=== PATIENT | female | born 2000 | race Caucasian/White ===

== ENCOUNTER 2022-09-30 18:10 | Inpatient (IN) | payer BC ==
[2022-09-30] MEDS ORDERED: SODIUM CHLORIDE 0.9% 1,000 ML IV STA (18:51)
[2022-09-30 19:17] LABS: Basophils # (A) 0.1 k/uL (0-0.2); Basophils % (A) 0 %; Eosinophils # (A) 0.1 k/uL (0-0.7); Eosinophils % (A) 1 %; HCT 44.5 % (34.0-46.0); HGB 14.7 gm/dL (11.4-16.0); Lymphocytes # (A) 2.1 k/uL (1.0-4.8); Lymphocytes % (A) 20 %; MCH 29.6 pg (25.0-35.0); MCV 89.9 fL (80.0-100.0); Mean Platelet Volume 7.4; Monocytes # (A) 0.4 k/uL (0-1.0); Monocytes % (A) 4 %; Neutrophils # (A) 7.7 k/uL (1.3-7.7); Neutrophils % (A) 73 %; Platelet Count 365 k/uL (150-450); RBC 4.95 m/uL (3.80-5.40); RDW 12.9 % (11.5-15.5); WBC 10.5 k/uL (3.8-10.6)
[2022-09-30 19:19] LABS: Appearance,Urine Clear (Clear); Bacteria,Urine Rare /hpf; Bilirubin,Urine Negative (Negative); Blood,Urine Trace (Negative); Color,Urine Light Yellow; Glucose,Urine (UA) Negative (Negative); Ketones,Urine Negative (Negative); Leukocyte Esterase,Urine Small (Negative); Nitrite,Urine Negative (Negative); PH, Urine 5.5 (5.0-8.0); Protein,Urine Negative (Negative); RBC,Urine 1 /hpf (0-5); Specific Gravity,Urine 1.006 (1.001-1.035); Squamous Epithelial Cell,Urine 2 /hpf (0-4); Urobilinogen,Urine <2.0 mg/dL (<2.0); WBC,Urine 2 /hpf (0-5)
[2022-09-30 19:27] LABS: ALT 42 U/L (4-34); AST 30 U/L (14-36); Acetaminophen <10.0 ug/mL; African American GFR (CKD) >90 (>60 ml/min/1.73 sqM); Albumin 4.8 g/dL (3.5-5.0); Alcohol <10 mg/dL; Alkaline Phosphatase 61 U/L (38-126); Anion Gap 12 mmol/L; Blood Urea Nitrogen 9 mg/dL (7-17); Calcium 9.5 mg/dL (8.4-10.2); Carbon Dioxide 23 mmol/L (22-30); Chloride 104 mmol/L (98-107); Glucose 125 mg/dL (74-99); Non-African American GFR(CKD) >90 (>60 ml/min/1.73 sqM); Potassium 3.8 mmol/L (3.5-5.1); Salicylate <1.0 mg/dL; Sodium 139 mmol/L (137-145); Total Bilirubin 0.4 mg/dL (0.2-1.3)
[2022-09-30 19:47] LABS: Amphetamine Screen,Urine Not Detected (NotDetected); Barbiturate Screen,Urine Not Detected (NotDetected); Benzodiazepines Screen,Urine Not Detected (NotDetected); Cocaine Screen,Urine Not Detected (NotDetected); Methadone Screen, Urine Not Detected (NotDetected); Opiate Screen,Urine Not Detected (NotDetected); Oxycodone Screen, Urine Not Detected (NotDetected); Phencyclidine Screen,Urine Not Detected (NotDetected); Tricyclic Antidepressant,Urine Not Detected (NotDetected); Urn Cannabinoid Scrn Not Detected (NotDetected)
--- NOTE | 2022-09-30 19:49 | ED ---
Overdose HPI - General Chief Complaint: Overdose Stated Complaint: overdose Time Seen by Provider: 09/30/22 18:20 Source: patient Mode of arrival: ambulatory Limitations: no limitations - History of Present Illness Initial Comments: 22-year-old female presents the emergency department for overdose. Mother at bedside provides majority of the history. Patient has a history of depression however does not see a counselor as she refuses to see one. She presents today as she was feeling depressed. She contacted her mom and told her last night that she was going to attempt suicide and took several tablets of Benadryl, Tylenol, mirtazapine and sumatriptan. She is unsure of how many she took. Ingestion was at 11:30 last night. Mother had difficulty getting the patient to come into the ER. Patient states that she intentionally took these medications to harm herself. She has one previous episode of attempt previously. Denies hospitalization. No drug or alcohol use. No concern for . No other alleviating, precipitating or modifying factors - Related Data Home Medications Medication Instructions Recorded Confirmed No Known Home Medications 09/30/22 10/01/22 Allergies Allergy/AdvReac Type Severity Reaction Status Date / Time No Known Allergies Allergy Verified 10/01/22 00:11 Review of Systems ROS Statement: Those systems with pertinent positive or pertinent negative responses have been documented in the HPI. ROS Other: All systems not noted in ROS Statement are negative. Past Medical History Additional Past Medical History / Comment(s): itchy skin, History of Any Multi-Drug Resistant Organisms: None Reported Past Surgical History: No Surgical Hx Reported Past Psychological History: Depression Smoking Status: Never smoker Past Alcohol Use History: None Reported Past Drug Use History: None Reported General Exam Limitations: no limitations General appearance: alert, in no apparent distress Head exam: Present: atraumatic, normocephalic, normal inspection Eye exam: Present: normal appearance, PERRL, EOMI. Absent: scleral icterus, conjunctival injection, periorbital swelling ENT exam: Present: normal exam, mucous membranes moist Neck exam: Present: normal inspection. Absent: tenderness, meningismus, lymphadenopathy Respiratory exam: Present: normal lung sounds bilaterally. Absent: respiratory distress, wheezes, rales, rhonchi, stridor Cardiovascular Exam: Present: regular rate, normal rhythm, normal heart sounds. Absent: systolic murmur, diastolic murmur, rubs, gallop, clicks GI/Abdominal exam: Present: soft, normal bowel sounds. Absent: distended, tenderness, guarding, rebound, rigid Extremities exam: Present: normal inspection, full ROM, normal capillary refill. Absent: tenderness, pedal edema, joint swelling, calf tenderness Back exam: Present: normal inspection Neurological exam: Present: alert, oriented X3, CN II-XII intact Psychiatric exam: Present: depressed, suicidal ideation Skin exam: Present: warm, dry, intact, normal color. Absent: rash Course Vital Signs 09/30/22 09/30/22 18:15 20:04 Temperature 98.7 F Pulse Rate 116 H 100 Respiratory 18 16 Rate Blood Pressure 119/86 126/75 O2 Sat by Pulse 99 99 Oximetry Medical Decision Making - Medical Decision Making Was pt. sent in by a medical professional or institution (, PA, MARKETING ADMINISTRATOR, urgent care, hospital, or senior living...) When possible be specific @ -No Did you speak to anyone other than the patient for history (EMS, parent, family, police, friend...)? What history was obtained from this source @ -I spoke with the patient's mother for history Did you review nursing and triage notes (agree or disagree)? Why? @ -I reviewed and agree with nursing and triage notes Were old charts reviewed (outside hosp., previous admission, EMS record, old EKG, old radiological studies, urgent care reports/EKG's, senior living records)? Report findings @ -No old charts were reviewed Differential Diagnosis (chest pain, altered mental status, abdominal pain women, abdominal pain men, vaginal bleeding, weakness, fever, dyspnea, syncope, headache, dizziness, GI bleed, back pain, seizure, CVA, palpatations, mental health, musculoskeletal)? @ -Differential Mental Health Depression, anxiety, bipolar, psychosis, schizophrenia, borderline personality, situational depression, adjustment disorder, behavioral disorder, brain tumor, malingering, substance abuse, encephalopathy, medication reaction, dementia, hypothyroidism, degenerative neurologic disorder, lupus.... This is not meant to be all-inclusive list EKG interpreted by me (3pts min.). @ -EKG demonstrates a sinus tachycardia with a rate of 110. WI interval 144. QRS 81. QTC of 390. No acute ST segment elevations or depressions X-rays interpreted by me (1pt min.). @ -None done CT interpreted by me (1pt min.). @ -None done U/S interpreted by me (1pt. min.). @ -None done What testing was considered but not performed or refused? (CT, X-rays, U/S, labs)? Why? @ -None What meds were considered but not given or refused? Why? @ -None Did you discuss the management of the patient with other professionals (professionals i.e. , PA, MARKETING ADMINISTRATOR, lab, RT, psych nurse, social worker masters, reroller hand, teacher, amphibious operations officer, case finishing machine adjuster)? Give summary @ -I spoke with poison control in regards to the patient's overdose Was smoking cessation discussed for >3mins.? @ -No Was critical care preformed (if so, how long)? @ -No Were there social determinants of health that impacted care today? How? (Homelessness, low income, unemployed, alcoholism, drug addiction, transportation, low edu. Level, literacy, decrease access to med. care, senior care, rehab)? @ -No Was there de-escalation of care discussed even if they declined (Discuss DNR or withdrawal of care, Hospice)? DNR status @ -No What co-morbidities impacted this encounter? (DM, HTN, Smoking, COPD, CAD, Cancer, CVA, ARF, Chemo, Hep., AIDS, mental health diagnosis, sleep apnea, morbid obesity)? @ -None Was patient admitted / discharged? Hospital course, mention meds given and route, prescriptions, significant lab abnormalities, going to OR and other pertinent info. @ -Upon arrival patient was placed in room 5. A thorough history and physical exam was performed. Ingestion was approximately 20 hours ago. She is placed on continuous pulse ox and cardiac monitoring. 12-lead EKG is obtained and laboratory studies are conducted. Poison control is consulted. Patient is medically clear at this time. She is evaluate her by EPS and requires admission. Patient awaiting a bed on the floor in stable condition Undiagnosed new problem with uncertain prognosis? @ -No Drug Therapy requiring intensive monitoring for toxicity (Heparin, Nitro, Insulin, Cardizem)? @ -No Were any procedures done? @ -No Diagnosis/symptom? @ -Acute intentional ingestion, acute depression, acute suicidal ideations Acute, or Chronic, or Acute on Chronic? @ -Acute Uncomplicated (without systemic symptoms) or Complicated (systemic symptoms)? @ -complicated Side effects of treatment? @ -No Exacerbation, Progression, or Severe Exacerbation? @ -No Poses a threat to life or bodily function? How? (Chest pain, [place], [place], pneumonia, PE, COPD, DKA, ARF, appy, cholecystitis, CVA, Diverticulitis, Homicidal, Suicidal, threat to staff... and all critical care pts) @ -Yes patient is actively suicidal - Lab Data Result diagrams: 09/30/22 19:02 09/30/22 19:02 Lab Results 09/30/22 09/30/22 09/30/22 Range/Units 19:02 19:02 19:02 WBC 10.5 (3.8-10.6) k/uL RBC 4.95 (3.80-5.40) m/uL Hgb 14.7 (11.4-16.0) gm/dL Hct 44.5 (34.0-46.0) % MCV 89.9 (80.0-100.0) fL MCH 29.6 (25.0-35.0) pg MCHC 33.0 (31.0-37.0) g/dL RDW 12.9 (11.5-15.5) % Plt Count 365 (150-450) k/uL MPV 7.4 Neutrophils % 73 % Lymphocytes % 20 % Monocytes % 4 % Eosinophils % 1 % Basophils % 0 % Neutrophils # 7.7 (1.3-7.7) k/uL Lymphocytes # 2.1 (1.0-4.8) k/uL Monocytes # 0.4 (0-1.0) k/uL Eosinophils # 0.1 (0-0.7) k/uL Basophils # 0.1 (0-0.2) k/uL Sodium (137-145) mmol/L Potassium (3.5-5.1) mmol/L Chloride (98-107) mmol/L Carbon Dioxide (22-30) mmol/L Anion Gap mmol/L BUN (7-17) mg/dL Creatinine (0.52-1.04) mg/dL Est GFR (CKD-EPI)AfAm (>60 ml/min/1.73 sqM) Est GFR (CKD-EPI)NonAf (>60 ml/min/1.73 sqM) Glucose (74-99) mg/dL Calcium (8.4-10.2) mg/dL Total Bilirubin (0.2-1.3) mg/dL AST (14-36) U/L ALT (4-34) U/L Alkaline Phosphatase (38-126) U/L Total Protein (6.3-8.2) g/dL Albumin (3.5-5.0) g/dL Urine Color Urine Appearance (Clear) Urine pH (5.0-8.0) Ur Specific [place] (1.001-1.035) Urine Protein (Negative) Urine Glucose (UA) (Negative) Urine Ketones (Negative) Urine Blood (Negative) Urine Nitrite (Negative) Urine Bilirubin (Negative) Urine Urobilinogen (<2.0) mg/dL Ur Leukocyte Esterase (Negative) Urine RBC (0-5) /hpf Urine WBC (0-5) /hpf Ur Squamous Epith Cells (0-4) /hpf Urine Bacteria (None) /hpf Urine HCG, Qual Not Detected (Not Detectd) Salicylates mg/dL Urine Opiates Screen Not Detected (NotDetected) Ur Oxycodone Screen Not Detected (NotDetected) Urine Methadone Screen Not Detected (NotDetected) Ur Propoxyphene Screen Not Detected (NotDetected) Acetaminophen ug/mL Ur Barbiturates Screen Not Detected (NotDetected) U Tricyclic Antidepress Not Detected (NotDetected) Ur Phencyclidine Scrn Not Detected (NotDetected) Ur Amphetamines Screen Not Detected (NotDetected) U Methamphetamines Scrn Not Detected (NotDetected) U Benzodiazepines Scrn Not Detected (NotDetected) Urine Cocaine Screen Not Detected (NotDetected) U Marijuana (THC) Screen Not Detected (NotDetected) Serum Alcohol mg/dL Coronavirus (PCR) (Not Detectd) 09/30/22 09/30/22 09/30/22 Range/Units 19:02 19:02 23:24 WBC (3.8-10.6) k/uL RBC (3.80-5.40) m/uL Hgb (11.4-16.0) gm/dL Hct (34.0-46.0) % MCV (80.0-100.0) fL MCH (25.0-35.0) pg MCHC (31.0-37.0) g/dL RDW (11.5-15.5) % Plt Count (150-450) k/uL MPV Neutrophils % % Lymphocytes % % Monocytes % % Eosinophils % % Basophils % % Neutrophils # (1.3-7.7) k/uL Lymphocytes # (1.0-4.8) k/uL Monocytes # (0-1.0) k/uL Eosinophils # (0-0.7) k/uL Basophils # (0-0.2) k/uL Sodium 139 (137-145) mmol/L Potassium 3.8 (3.5-5.1) mmol/L Chloride 104 (98-107) mmol/L Carbon Dioxide 23 (22-30) mmol/L Anion Gap 12 mmol/L BUN 9 (7-17) mg/dL Creatinine 0.63 (0.52-1.04) mg/dL Est GFR (CKD-EPI)AfAm >90 (>60 ml/min/1.73 sqM) Est GFR (CKD-EPI)NonAf >90 (>60 ml/min/1.73 sqM) Glucose 125 H (74-99) mg/dL Calcium 9.5 (8.4-10.2) mg/dL Total Bilirubin 0.4 (0.2-1.3) mg/dL AST 30 (14-36) U/L ALT 42 H (4-34) U/L Alkaline Phosphatase 61 (38-126) U/L Total Protein 8.0 (6.3-8.2) g/dL Albumin 4.8 (3.5-5.0) g/dL Urine Color Light Yellow Urine Appearance Clear (Clear) Urine pH 5.5 (5.0-8.0) Ur Specific [place] 1.006 (1.001-1.035) Urine Protein Negative (Negative) Urine Glucose (UA) Negative (Negative) Urine Ketones Negative (Negative) Urine Blood Trace H (Negative) Urine Nitrite Negative (Negative) Urine Bilirubin Negative (Negative) Urine Urobilinogen <2.0 (<2.0) mg/dL Ur Leukocyte Esterase Small H (Negative) Urine RBC 1 (0-5) /hpf Urine WBC 2 (0-5) /hpf Ur Squamous Epith Cells 2 (0-4) /hpf Urine Bacteria Rare H (None) /hpf Urine HCG, Qual (Not Detectd) Salicylates <1.0 mg/dL Urine Opiates Screen (NotDetected) Ur Oxycodone Screen (NotDetected) Urine Methadone Screen (NotDetected) Ur Propoxyphene Screen (NotDetected) Acetaminophen <10.0 ug/mL Ur Barbiturates Screen (NotDetected) U Tricyclic Antidepress (NotDetected) Ur Phencyclidine Scrn (NotDetected) Ur Amphetamines Screen (NotDetected) U Methamphetamines Scrn (NotDetected) U Benzodiazepines Scrn (NotDetected) Urine Cocaine Screen (NotDetected) U Marijuana (THC) Screen (NotDetected) Serum Alcohol <10 mg/dL Coronavirus (PCR) Not Detected (Not Detectd) Disposition Clinical Impression: Suicidal ideations, Depression Disposition: TRANSFER TO PSYCH HOSP/UNIT Condition: Serious Is patient prescribed a controlled substance at d/c from ED?: No
[2022-09-30] MEDS ORDERED: LORazepam 2 MG/ML INJ IM PRN (23:18)
[2022-09-30] MEDS ORDERED: HALOPERIDOL LACTATE 5 MG/ML 1 ML VIAL IM PRN (23:18)
[2022-09-30] MEDS ORDERED: ACETAMINOPHEN TAB 325 MG TAB PO PRN (23:18)
[2022-09-30] MEDS ORDERED: haloperidoL 5 MG TAB PO PRN (23:18)
[2022-09-30] MEDS ORDERED: MAGNESIUM HYDROXIDE 2,400 MG/10 ML CUP PO PRN (23:18)
[2022-09-30] MEDS ORDERED: MAG HYDROX/AL HYDROX/SIMETH 30 ML CUP PO PRN (23:18)
[2022-09-30] MEDS ORDERED: IBUPROFEN 600 MG TAB PO PRN (23:18)
[2022-09-30] MEDS ORDERED: traZODone HCL 50 MG TAB PO PRN (23:18)
[2022-10-01 02:20] LABS: Amorphous Sediment,Urine Rare /hpf; Appearance,Urine Cloudy (Clear); Bilirubin,Urine Negative (Negative); Blood,Urine Small (Negative); Color,Urine Yellow; Glucose,Urine (UA) Negative (Negative); Hyaline Casts,Urine 1 /lpf (0-2); Ketones,Urine Negative (Negative); Leukocyte Esterase,Urine Large (Negative); Mucus,Urine Moderate /hpf; Nitrite,Urine Negative (Negative); PH, Urine 5.5 (5.0-8.0); Protein,Urine Trace (Negative); RBC,Urine 2 /hpf (0-5); Specific Gravity,Urine 1.028 (1.001-1.035); Squamous Epithelial Cell,Urine 5 /hpf (0-4); Urobilinogen,Urine <2.0 mg/dL (<2.0); WBC,Urine 68 /hpf (0-5)
[2022-10-01] MEDS: NICOTINE 14MG/24HR PATCH TRANSDERM SCH (09:06)
[2022-10-01] MEDS ORDERED: FLUoxetine HCL 20 MG CAP PO STA (10:15)
[2022-10-01 12:43] LABS: Basophils % (A) 0 %; Eosinophils # (A) 0.1 k/uL (0-0.7); Eosinophils % (A) 2 %; HCT 42.6 % (34.0-46.0); HGB 13.8 gm/dL (11.4-16.0); Lymphocytes # (A) 2.1 k/uL (1.0-4.8); Lymphocytes % (A) 29 %; MCH 29.8 pg (25.0-35.0); MCHC 32.5 g/dL (31.0-37.0); MCV 91.6 fL (80.0-100.0); Mean Platelet Volume 7.6; Monocytes # (A) 0.3 k/uL (0-1.0); Monocytes % (A) 4 %; Neutrophils # (A) 4.7 k/uL (1.3-7.7); Neutrophils % (A) 64 %; Platelet Count 327 k/uL (150-450); RBC 4.65 m/uL (3.80-5.40); RDW 13.1 % (11.5-15.5); WBC 7.4 k/uL (3.8-10.6)
[2022-10-01 12:54] LABS: ALT 48 U/L (4-34); AST 39 U/L (14-36); African American GFR (CKD) >90 (>60 ml/min/1.73 sqM); Albumin 4.6 g/dL (3.5-5.0); Alkaline Phosphatase 56 U/L (38-126); Anion Gap 11 mmol/L; Blood Urea Nitrogen 11 mg/dL (7-17); Calcium 9.4 mg/dL (8.4-10.2); Carbon Dioxide 29 mmol/L (22-30); Chloride 102 mmol/L (98-107); Glucose 87 mg/dL (74-99); Non-African American GFR(CKD) >90 (>60 ml/min/1.73 sqM); Potassium 4.1 mmol/L (3.5-5.1); Sodium 142 mmol/L (137-145); Total Bilirubin 0.5 mg/dL (0.2-1.3); Total Protein 7.5 g/dL (6.3-8.2)
--- NOTE | 2022-10-01 13:29 | P.HP ---
Psychiatric H&P - . H&P Date: 10/01/22 History & Physical: Allergies Allergy/AdvReac Type Severity Reaction Status Date / Time No Known Allergies Allergy Verified 10/01/22 00:11 Vital Signs Temp 97.2 F L 10/01/22 03:28 Pulse 71 10/01/22 03:28 Resp 15 10/01/22 03:28 BP 133/69 10/01/22 03:28 Pulse Ox 100 10/01/22 03:28 FiO2 Intake & Output 09/30/22 10/01/22 10/01/22 18:59 06:59 18:59 Weight 113.398 kg 111.839 kg Laboratory Last Values WBC 7.4 k/uL (3.8-10.6) 10/01/22 12:11 RBC 4.65 m/uL (3.80-5.40) 10/01/22 12:11 Hgb 13.8 gm/dL (11.4-16.0) 10/01/22 12:11 Hct 42.6 % (34.0-46.0) 10/01/22 12:11 MCV 91.6 fL (80.0-100.0) 10/01/22 12:11 MCH 29.8 pg (25.0-35.0) 10/01/22 12:11 MCHC 32.5 g/dL (31.0-37.0) 10/01/22 12:11 RDW 13.1 % (11.5-15.5) 10/01/22 12:11 Plt Count 327 k/uL (150-450) 10/01/22 12:11 MPV 7.6 10/01/22 12:11 Neutrophils % 64 % 10/01/22 12:11 Lymphocytes % 29 % 10/01/22 12:11 Monocytes % 4 % 10/01/22 12:11 Eosinophils % 2 % 10/01/22 12:11 Basophils % 0 % 10/01/22 12:11 Neutrophils # 4.7 k/uL (1.3-7.7) 10/01/22 12:11 Lymphocytes # 2.1 k/uL (1.0-4.8) 10/01/22 12:11 Monocytes # 0.3 k/uL (0-1.0) 10/01/22 12:11 Eosinophils # 0.1 k/uL (0-0.7) 10/01/22 12:11 Basophils # 0.0 k/uL (0-0.2) 10/01/22 12:11 Sodium 142 mmol/L (137-145) 10/01/22 12:11 Potassium 4.1 mmol/L (3.5-5.1) 10/01/22 12:11 Chloride 102 mmol/L (98-107) 10/01/22 12:11 Carbon Dioxide 29 mmol/L (22-30) 10/01/22 12:11 Anion Gap 11 mmol/L 10/01/22 12:11 BUN 11 mg/dL (7-17) 10/01/22 12:11 Creatinine 0.74 mg/dL (0.52-1.04) 10/01/22 12:11 Est GFR (CKD-EPI)AfAm >90 (>60 ml/min/1.73 sqM) 10/01/22 12:11 Est GFR (CKD-EPI)NonAf >90 (>60 ml/min/1.73 sqM) 10/01/22 12:11 Glucose 87 mg/dL (74-99) 10/01/22 12:11 Calcium 9.4 mg/dL (8.4-10.2) 10/01/22 12:11 Total Bilirubin 0.5 mg/dL (0.2-1.3) 10/01/22 12:11 AST 39 U/L (14-36) H 10/01/22 12:11 ALT 48 U/L (4-34) H 10/01/22 12:11 Alkaline Phosphatase 56 U/L (38-126) 10/01/22 12:11 Total Protein 7.5 g/dL (6.3-8.2) 10/01/22 12:11 Albumin 4.6 g/dL (3.5-5.0) 10/01/22 12:11 TSH 1.390 mIU/L (0.465-4.680) 10/01/22 12:11 Urine Color Yellow 10/01/22 01:27 Urine Appearance Cloudy (Clear) H 10/01/22 01:27 Urine pH 5.5 (5.0-8.0) 10/01/22 01:27 Ur Specific [place] 1.028 (1.001-1.035) 10/01/22 01:27 Urine Protein Trace (Negative) H 10/01/22 01:27 Urine Glucose (UA) Negative (Negative) 10/01/22 01:27 Urine Ketones Negative (Negative) 10/01/22 01:27 Urine Blood Small (Negative) H 10/01/22 01:27 Urine Nitrite Negative (Negative) 10/01/22 01:27 Urine Bilirubin Negative (Negative) 10/01/22 01:27 Urine Urobilinogen <2.0 mg/dL (<2.0) 10/01/22 01:27 Ur Leukocyte Esterase Large (Negative) H 10/01/22 01:27 Urine RBC 2 /hpf (0-5) 10/01/22 01:27 Urine WBC 68 /hpf (0-5) H 10/01/22 01:27 Ur Squamous Epith Cells 5 /hpf (0-4) H 10/01/22 01:27 Amorphous Sediment Rare /hpf (None) H 10/01/22 01:27 Urine Bacteria Rare /hpf (None) H 09/30/22 19:02 Hyaline Casts 1 /lpf (0-2) 10/01/22 01:27 Urine Mucus Moderate /hpf (None) H 10/01/22 01:27 Urine HCG, Qual Not Detected (Not Detectd) 10/01/22 01:27 Salicylates <1.0 mg/dL 09/30/22 19:02 Urine Opiates Screen Not Detected (NotDetected) 09/30/22 19:02 Ur Oxycodone Screen Not Detected (NotDetected) 09/30/22 19:02 Urine Methadone Screen Not Detected (NotDetected) 09/30/22 19:02 Ur Propoxyphene Screen Not Detected (NotDetected) 09/30/22 19:02 Acetaminophen <10.0 ug/mL 09/30/22 19:02 Ur Barbiturates Screen Not Detected (NotDetected) 09/30/22 19:02 U Tricyclic Antidepress Not Detected (NotDetected) 09/30/22 19:02 Ur Phencyclidine Scrn Not Detected (NotDetected) 09/30/22 19:02 Ur Amphetamines Screen Not Detected (NotDetected) 09/30/22 19:02 U Methamphetamines Scrn Not Detected (NotDetected) 09/30/22 19:02 U Benzodiazepines Scrn Not Detected (NotDetected) 09/30/22 19:02 Urine Cocaine Screen Not Detected (NotDetected) 09/30/22 19:02 U Marijuana (THC) Screen Not Detected (NotDetected) 09/30/22 19:02 Serum Alcohol <10 mg/dL 09/30/22 19:02 Coronavirus (PCR) Not Detected (Not Detectd) 09/30/22 23:24 10/01/22 13:29 IDENTIFYING DATA: Patient is a single, employed, 22-year-old female with a significant history of depression and anxiety who presents to our hospital on after suicide attempt by overdose. HPI: Patient presented to the hospital on 09/30/2022, brought into the hospital by her mother after attempting to kill herself by an overdose. In the emergency department, the patient was guarded and a limited historian. She did however endorse that she has been suicidal since she was 9 years old. The patient was subsequently admitted onto the psychiatric unit and signed herself in voluntarily. Upon evaluation on the psychiatric unit, the patient reports "my mom brought me to the hospital because I took a bunch of stuff. I just wanted to stop living. I have been having suicidal thoughts since I was 9 years old." The patient does report a history of prior suicide attempts with the last time being approximately one year ago on 2021. The patient reports that she overdosed at that time as well. She is unable to identify any acute stressors to this provider. She does however report significant symptoms of depression including crying at night, feeling anhedonic, and lacking motivation. She has however denying any changes to her appetite, sleep, or any excessive feelings of guilt. The patient reports that she has christian beliefs that after this life, she is due to have a better life and have been. She is denying any significant symptoms of bipolar disorder. She denies any periods excessive energy, grandiosity, mood lability, or increased goal-directed activity. The patient does not endorse any significant history of trauma. She denies any history of stitches physical, sexual, or emotional abuse. She reports no history of bullying. The patient also denies any significant history of substance abuse. She is not reporting any acute stressors to this provider. She is admitted for further evaluation and treatment of depression. PAST PSYCHIATRIC HISTORY: Patient states that she has been previously diagnosed with anxiety. She recalls being previously prescribed Zoloft. Patient denies any previous psychiatric hospitalizations. Patient denies any psychiatric outpatient follow-up. She reports a prior attempt at suicide on 2021 by overdose. PMH: Additional Past Medical History / Comment(s): itchy skin, History of Any Multi-Drug Resistant Organisms: None Reported Past Surgical History: No Surgical Hx Reported Past Psychological History: Depression Smoking Status: Never smoker Past Alcohol Use History: None Reported Past Drug Use History: None Reported ALLERGIES: NO KNOWN DRUG ALLERGIES CHEMICAL DEPENDENCY HISTORY: Patient denies any tobacco, alcohol, marijuana, or illicit drug use. FAMILY PSYCHIATRIC/SUBSTANCE USE HISTORY: The patient reports that her sister has obsessive-compulsive disorder. She reports no family history of suicide SOCIAL HISTORY: Patient was born and raised in [place], [place]. She is single, never , and has no children. 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 She attended some college. She currently lives with 2 roommates. She identifies as Mosque. She reports no legal issues. MENTAL STATUS EXAM: General Appearance: Patient appears to be stated age is alert, directable, however is guarded. Patient appears to have fair hygiene and grooming. Behavior: Patient displays elevated psychomotor activity. Speech: Patient's speech is nonspontaneous, minimal, low in volume, monotone. Mood/Affect: Patient reports their mood is I don't know." Affect is flat. Suicidality/Homicidality: Patient endorses suicidal ideation. She denies any homicidal ideation. Perceptions: Patient denies any visual hallucinations and denies any auditory hallucinations Though content/process: Dysphoric thought process. Fixation on the afterlife. Memory and concentration: AOX3, grossly intact for the purposes of this session. Can spell "WORLD" backwards Judgment and insight: Very poor STRENGTHS/WEAKNESSES: Strength is that the patient has a supportive family, is gainfully employed, and does not use any substances. Weakness is that the patient appears to be guarded and anxious. INTELLECT: average IMPRESSIONS: Major depressive disorder Generalized anxiety disorder PLAN: -Patient is admitted under voluntary status to [facility]HU for stabilization of psychiatric symptoms and safety. Patient signed adult voluntary form and medication consent and is placed in patient's chart. -Medications : Will start patient on Prozac 20 mg by mouth daily. Depression/anxiety -Ativan and Haldol PRN for agitation/aggression -Patient was informed of the risks, benefits and side effects of the medication and patient verbally consented to taking the medications. Patient signed med consent form and was placed in chart. -Internal Medicine consult to perform medical evaluation and physical. -SW on board for discharge planning. Encourage patient to participate in groups to work on coping skills. Vital Signs Temp 97.2 F L 10/01/22 03:28 Pulse 71 10/01/22 03:28 Resp 15 10/01/22 03:28 BP 133/69 10/01/22 03:28 Pulse Ox 100 10/01/22 03:28 FiO2 Intake & Output 09/30/22 10/01/22 10/01/22 18:59 06:59 18:59 Weight 113.398 kg 111.839 kg Laboratory Results WBC 7.4 k/uL (3.8-10.6) 10/01/22 12:11 RBC 4.65 m/uL (3.80-5.40) 10/01/22 12:11 Hgb 13.8 gm/dL (11.4-16.0) 10/01/22 12:11 Hct 42.6 % (34.0-46.0) 10/01/22 12:11 MCV 91.6 fL (80.0-100.0) 10/01/22 12:11 MCH 29.8 pg (25.0-35.0) 10/01/22 12:11 MCHC 32.5 g/dL (31.0-37.0) 10/01/22 12:11 RDW 13.1 % (11.5-15.5) 10/01/22 12:11 Plt Count 327 k/uL (150-450) 10/01/22 12:11 MPV 7.6 10/01/22 12:11 Neutrophils % 64 % 10/01/22 12:11 Lymphocytes % 29 % 10/01/22 12:11 Monocytes % 4 % 10/01/22 12:11 Eosinophils % 2 % 10/01/22 12:11 Basophils % 0 % 10/01/22 12:11 Neutrophils # 4.7 k/uL (1.3-7.7) 10/01/22 12:11 Lymphocytes # 2.1 k/uL (1.0-4.8) 10/01/22 12:11 Monocytes # 0.3 k/uL (0-1.0) 10/01/22 12:11 Eosinophils # 0.1 k/uL (0-0.7) 10/01/22 12:11 Basophils # 0.0 k/uL (0-0.2) 10/01/22 12:11 Sodium 142 mmol/L (137-145) 10/01/22 12:11 Potassium 4.1 mmol/L (3.5-5.1) 10/01/22 12:11 Chloride 102 mmol/L (98-107) 10/01/22 12:11 Carbon Dioxide 29 mmol/L (22-30) 10/01/22 12:11 Anion Gap 11 mmol/L 10/01/22 12:11 BUN 11 mg/dL (7-17) 10/01/22 12:11 Creatinine 0.74 mg/dL (0.52-1.04) 10/01/22 12:11 Est GFR (CKD-EPI)AfAm >90 (>60 ml/min/1.73 sqM) 10/01/22 12:11 Est GFR (CKD-EPI)NonAf >90 (>60 ml/min/1.73 sqM) 10/01/22 12:11 Glucose 87 mg/dL (74-99) 10/01/22 12:11 Calcium 9.4 mg/dL (8.4-10.2) 10/01/22 12:11 Total Bilirubin 0.5 mg/dL (0.2-1.3) 10/01/22 12:11 AST 39 U/L (14-36) H 10/01/22 12:11 ALT 48 U/L (4-34) H 10/01/22 12:11 Alkaline Phosphatase 56 U/L (38-126) 10/01/22 12:11 Total Protein 7.5 g/dL (6.3-8.2) 10/01/22 12:11 Albumin 4.6 g/dL (3.5-5.0) 10/01/22 12:11 TSH 1.390 mIU/L (0.465-4.680) 10/01/22 12:11 Urine Color Yellow 10/01/22 01:27 Urine Appearance Cloudy (Clear) H 10/01/22 01:27 Urine pH 5.5 (5.0-8.0) 10/01/22 01:27 Ur Specific [place] 1.028 (1.001-1.035) 10/01/22 01:27 Urine Protein Trace (Negative) H 10/01/22 01:27 Urine Glucose (UA) Negative (Negative) 10/01/22 01:27 Urine Ketones Negative (Negative) 10/01/22 01:27 Urine Blood Small (Negative) H 10/01/22 01:27 Urine Nitrite Negative (Negative) 10/01/22 01:27 Urine Bilirubin Negative (Negative) 10/01/22 01:27 Urine Urobilinogen <2.0 mg/dL (<2.0) 10/01/22 01:27 Ur Leukocyte Esterase Large (Negative) H 10/01/22 01:27 Urine RBC 2 /hpf (0-5) 10/01/22 01:27 Urine WBC 68 /hpf (0-5) H 10/01/22 01:27 Ur Squamous Epith Cells 5 /hpf (0-4) H 10/01/22 01:27 Amorphous Sediment Rare /hpf (None) H 10/01/22 01:27 Urine Bacteria Rare /hpf (None) H 09/30/22 19:02 Hyaline Casts 1 /lpf (0-2) 10/01/22 01:27 Urine Mucus Moderate /hpf (None) H 10/01/22 01:27 Urine HCG, Qual Not Detected (Not Detectd) 10/01/22 01:27 Salicylates <1.0 mg/dL 09/30/22 19:02 Urine Opiates Screen Not Detected (NotDetected) 09/30/22 19:02 Ur Oxycodone Screen Not Detected (NotDetected) 09/30/22 19:02 Urine Methadone Screen Not Detected (NotDetected) 09/30/22 19:02 Ur Propoxyphene Screen Not Detected (NotDetected) 09/30/22 19:02 Acetaminophen <10.0 ug/mL 09/30/22 19:02 Ur Barbiturates Screen Not Detected (NotDetected) 09/30/22 19:02 U Tricyclic Antidepress Not Detected (NotDetected) 09/30/22 19:02 Ur Phencyclidine Scrn Not Detected (NotDetected) 09/30/22 19:02 Ur Amphetamines Screen Not Detected (NotDetected) 09/30/22 19:02 U Methamphetamines Scrn Not Detected (NotDetected) 09/30/22 19:02 U Benzodiazepines Scrn Not Detected (NotDetected) 09/30/22 19:02 Urine Cocaine Screen Not Detected (NotDetected) 09/30/22 19:02 U Marijuana (THC) Screen Not Detected (NotDetected) 09/30/22 19:02 Serum Alcohol <10 mg/dL 09/30/22 19:02 Coronavirus (PCR) Not Detected (Not Detectd) 09/30/22 23:24 Allergies Allergy/AdvReac Type Severity Reaction Status Date / Time No Known Allergies Allergy Verified 10/01/22 00:11 10/01/22 13:29
[2022-10-01 20:17] LABS: Chol/HDL Ratio 4.21 Ratio; LDL Cholesterol,Calculated 90.9 mg/dL
--- NOTE | 2022-10-02 01:09 | P.CONS ---
History of Present Illness - Reason for Consult Consult date: 10/02/22 - History of Present Illness The patient is a 22-year-old female with a PMH of depression who was brought into the emergency room after an intentional overdose. The patient was guarded during the interview and did not wish to answer many questions. She stated that she does not recall which medications she had taken. As per the ED documentation, the patient had reportedly taken several tablets of Benadryl, Tylenol, mirtazapine, and sumatriptan denied prior at 11:30 PM. The patient was attempting to harm herself intentionally. She reports feeling at her baseline at the time of interview. She denied experiencing any complaints. She denied experiencing chest discomfort, shortness of breath, fever, chills, cough, nausea, vomiting, abdominal pain, diarrhea. She also denied urinary complaints. Review of systems: Pertinent positives and negatives as discussed in HPI, a complete review of systems was performed and all other systems are negative. Physical examination: General: non toxic, no distress, appears at stated age, morbidly obese Derm: no unusual rashes/lesions, no unusual ecchymoses, warm, dry Head: atraumatic, normocephalic, symmetric Eyes: EOMI, no lid lag, anicteric sclera ENT: Nose and ears atraumatic, no thrush, no pharyngeal erythema Neck: trachea midline, supple Mouth: no lip lesion, mucus membranes moist Cardiovascular: S1S2 reg, no murmur, no edema Lungs: CTA bilateral, no rhonchi, no rales , no accessory muscle use Abdominal: soft, nontender to palpation, no guarding Ext: no gross muscle atrophy, no contractures, Neuro: No gross focal neuro deficits noted Psych: Alert, oriented, appropriate affect Assessment: Abnormal UA, Likely colonization as patient is a dramatic Elevated AST and ALT Intentional overdose of depression and suicidal ideation Imaging: EKG had revealed sinus tachycardia at 110 bpm as reviewed by me. Data Review: Laboratory evaluation was reviewed and was remarkable for AST 39, ALT 48, TSH 1.39, UA consistent with UTI. Plan: Obtain repeat CMP to monitor for resolution of transaminitis Defer management of depression and suicidal ideation to the primary psychiatry service Thank you for allowing us to participate in the care of this patient. We will follow peripherally. Do not hesitate to contact us with questions. Someone can be reached from the [facility] hospitalist group at all hours of the day at [phone]. Past Medical History Additional Past Medical History / Comment(s): itchy skin, rash on left breast History of Any Multi-Drug Resistant Organisms: None Reported Past Surgical History: No Surgical Hx Reported Past Anesthesia/Blood Transfusion Reactions: No Reported Reaction Past Psychological History: Depression Smoking Status: Never smoker Past Alcohol Use History: None Reported Past Drug Use History: None Reported Medications and Allergies Home Medications Medication Instructions Recorded Confirmed Type No Known Home Medications 09/30/22 10/01/22 History Allergies Allergy/AdvReac Type Severity Reaction Status Date / Time No Known Allergies Allergy Verified 10/01/22 00:11 Physical Exam Vitals: Vital Signs Temp Pulse Resp BP Pulse Ox 10/01/22 03:28 97.2 F L 71 15 133/69 100 Results CBC & Chem 7: 10/01/22 12:11 10/01/22 12:11 Labs: Abnormal Lab Results - Last 24 Hours (Table) 10/01/22 10/01/22 Range/Units 01:27 12:11 AST 39 H (14-36) U/L ALT 48 H (4-34) U/L HDL Cholesterol 37.30 L mg/dL Urine Appearance Cloudy H (Clear) Urine Protein Trace H (Negative) Urine Blood Small H (Negative) Ur Leukocyte Esterase Large H (Negative) Urine WBC 68 H (0-5) /hpf Ur Squamous Epith Cells 5 H (0-4) /hpf Amorphous Sediment Rare H (None) /hpf Urine Mucus Moderate H (None) /hpf
[2022-10-02] MEDS: NICOTINE 14MG/24HR PATCH TRANSDERM SCH (09:44)
[2022-10-02] MEDS: FLUoxetine HCL 10 MG CAP PO SCH (09:46)
--- NOTE | 2022-10-02 11:36 | P.PN ---
Progress Note - Text Progress Note Date: 10/02/22 Interval History: Patient was seen attending group and was directable and agreeable to speak with scenario writer in the office. Currently, the patient continues to be minimal in conversation. She minimizes her symptoms of depression however later relented that she has been feeling increasingly depressed and she was in the fifth grade. She does report that she feels like she has been neglected by her parents have been paying more attention to her other siblings. The patient is 1 of 6 children. She does report that she has elevated anxiety and is concerned about what others think of her. She continues to report suicidal ideation. She denies any homicidal ideation. She has been adherent with her medications and is not endorsing any significant side effects at this time. The patient denies any auditory or visual hallucinations. She denies any paranoia or other delus ions. Mental Status Exam: General Appearance: Patient appears to be stated age is alert, directable, and intermittently cooperative. Behavior: Patient is calmly seated without any agitated behavior. Psychomotor slowing is evident. Eye contact is poor. Speech: Patient's speech is fluent and nonpressured. Nonspontaneous, monotone. Mood/Affect: Mood is "I don't know," affect is flat. Suicidality/Homicidality: Patient endorses suicidal ideation. No homicidal ideation. Perceptions: Patient denies any visual hallucinations and denies any auditory hallucinations Though content/process: Dysphoric thought process. Nihilistic. Memory and concentration: AOX3, grossly intact for the purposes of this session Judgment and insight: Poor Vital Signs Temp 97 F L 10/02/22 06:37 Pulse 75 10/02/22 06:37 Resp 14 10/02/22 06:37 BP 110/63 10/02/22 06:37 Pulse Ox 100 10/01/22 03:28 FiO2 Laboratory Results - Last 24 Hours 10/01/22 10/01/22 10/01/22 12:11 12:11 12:11 WBC 7.4 RBC 4.65 Hgb 13.8 Hct 42.6 MCV 91.6 MCH 29.8 MCHC 32.5 RDW 13.1 Plt Count 327 MPV 7.6 Neutrophils % 64 Lymphocytes % 29 Monocytes % 4 Eosinophils % 2 Basophils % 0 Neutrophils # 4.7 Lymphocytes # 2.1 Monocytes # 0.3 Eosinophils # 0.1 Basophils # 0.0 Sodium 142 Potassium 4.1 Chloride 102 Carbon Dioxide 29 Anion Gap 11 BUN 11 Creatinine 0.74 Est GFR (CKD-EPI)AfAm >90 Est GFR (CKD-EPI)NonAf >[address] Glu mg/dL 117 Hemoglobin A1c 5.7 Calcium 9.4 Total Bilirubin 0.5 AST 39 H ALT 48 H Alkaline Phosphatase 56 Total Protein 7.5 Albumin 4.6 Triglycerides 144.00 Cholesterol 157.00 LDL Cholesterol, Calc 90.9 VLDL Cholesterol, Calc 28.80 HDL Cholesterol 37.30 L Cholesterol/HDL Ratio 4.21 TSH 1.390 Assessment Major depressive disorder Generalized anxiety disorder Plan: -Patient continues to meet criteria for inpatient psychiatric admission for symptom stabilization and safety. Patient has signed adult voluntary form and medication consent and was placed in patient's chart. -Medications: Increase Prozac to 30 mg for depression/anxiety. Plan to titrate to 40 mg tomorrow. -When necessary Ativan and Haldol for agitation/aggression. -SW on board for discharge planning. Encouraged the patient to participate in milieu.
[2022-10-03 08:31] LABS: ALT 42 U/L (4-34); AST 31 U/L (14-36); African American GFR (CKD) >90 (>60 ml/min/1.73 sqM); Albumin 4.1 g/dL (3.5-5.0); Alkaline Phosphatase 51 U/L (38-126); Anion Gap 11 mmol/L; Blood Urea Nitrogen 12 mg/dL (7-17); Calcium 9.2 mg/dL (8.4-10.2); Carbon Dioxide 25 mmol/L (22-30); Chloride 104 mmol/L (98-107); Glucose 91 mg/dL (74-99); Non-African American GFR(CKD) >90 (>60 ml/min/1.73 sqM); Potassium 4.2 mmol/L (3.5-5.1); Sodium 140 mmol/L (137-145); Total Bilirubin 0.5 mg/dL (0.2-1.3); Total Protein 6.8 g/dL (6.3-8.2)
[2022-10-03] MEDS: FLUoxetine HCL 10 MG CAP PO SCH (08:41)
--- NOTE | 2022-10-03 11:22 | P.PN ---
Progress Note - Text Progress Note Date: 10/03/22 Interval History: Patient was seen attending group and was directable and agreeable to speak with administrative underwriter in the office. Currently, the patient reports that she has been attempting to work on herself to be discharged. She does identify emotions that lead to her overdose attempt. She does however continue to endorse suicidal ideation. She states this provider, "Suicide is ok for me, but not for others." She reports no side effects of her medication. She reports no issues regarding s leep or appetite. She reports she is sleeping and eating well. She reports more future orientation today. Mental Status Exam: General Appearance: Patient appears to be stated age is alert, directable, and attempts to cooperate. Behavior: Patient is calmly seated without any agitated behavior. Psychomotor slowing is evident. Eye contact is poor. Withdrawn. Speech: Patient's speech is fluent and nonpressured. Nonspontaneous, monotone. Mood/Affect: Mood is "When can I leave," affect is flat. Suicidality/Homicidality: Patient endorses suicidal ideation. No homicidal ideation. Perceptions: Patient denies any visual hallucinations and denies any auditory hallucinations Though content/process: Dysphoric thought process. Nihilistic. Memory and concentration: AOX3, grossly intact for the purposes of this session Judgment and insight: Poor Vital Signs Temp 97 F L 10/02/22 06:37 Pulse 75 10/02/22 06:37 Resp 14 10/02/22 06:37 BP 110/63 10/02/22 06:37 Pulse Ox 100 10/01/22 03:28 FiO2 Laboratory Results - Last 24 Hours 10/03/22 07:42 Sodium 140 Potassium 4.2 Chloride 104 Carbon Dioxide 25 Anion Gap 11 BUN 12 Creatinine 0.64 Est GFR (CKD-EPI)AfAm >90 Est GFR (CKD-EPI)NonAf >90 Glucose 91 Calcium 9.2 Total Bilirubin 0.5 AST 31 ALT 42 H Alkaline Phosphatase 51 Total Protein 6.8 Albumin 4.1 Assessment Major depressive disorder Generalized anxiety disorder Plan: -Patient continues to meet criteria for inpatient psychiatric admission for s ymptom stabilization and safety. Patient has signed adult voluntary form and medication consent and was placed in patient's chart. -Medications: Increase Prozac to 40 mg for depression/anxiety. Consider augmentation with wellbutrin or Abilify. -When necessary Ativan and Haldol for agitation/aggression. -SW on board for discharge planning. Encouraged the patient to participate in milieu.
[2022-10-04 06:57] VITALS: BP 101/55; PULSE 72; RESP 18; TEMP 97.9
[2022-10-04] MEDS ORDERED: FLUoxetine HCL 20 MG CAP PO SCH (09:00)
--- NOTE | 2022-10-04 11:31 | P.DS ---
Providers Date of admission: 09/30/22 23:30 Expected date of discharge: 10/04/22 Attending physician: Mateo Martinez MD Consults: 09/30/22 23:18 Consult Physician Routine Consulting Provider: Elba Wilson Consult Reason/Comments: h and p Do you want consulting provider notified?: Yes, Notify in am Primary care physician: Stated None - Discharge Diagnosis(es) (1) Major depressive disorder Current Visit: Yes Status: Acute Priority: High (2) Generalized anxiety disorder Current Visit: Yes Status: Acute Priority: High Hospital Course: Admission HPI: Patient is a single, employed, 22-year-old female with a significant history of depression and anxiety who presents to our hospital on 09/30/2022 after suicide attempt by overdose. Patient presented to the hospital on 09/30/2022, brought into the hospital by her mother after attempting to kill herself by an overdose. In the emergency department, the patient was guarded and a limited historian. She did however endorse that she has been suicidal since she was 9 years old. The patient was subsequently admitted onto the psychiatric unit and signed herself in voluntarily. Upon evaluation on the psychiatric unit, the patient reports "my mom brought me to the hospital because I took a bunch of stuff. I just wanted to stop living. I have been having suicidal thoughts since I was 9 years old." The patient does report a history of prior suicide attempts with the last time being approximately one year ago on 2021. The patient reports that she overdosed at that time as well. She is unable to identify any acute stressors to this provider. She does however report significant symptoms of depression including crying at night, feeling anhedonic, and lacking motivation. She has however denying any changes to her appetite, sleep, or any excessive feelings of guilt. The patient reports that she has druze beliefs that after this life, she is due to have a better life and have been. She is denying any significant symptoms of bipolar disorder. She denies any periods excessive energy, grandiosity, mood lability, or increased goal-directed activity. The patient does not endorse any significant history of trauma. She denies any history of stitches physical, sexual, or emotional abuse. She reports no history of bullying. The patient also denies any significant history of substance abuse. She is not reporting any acute stressors to this provider. She is admitted for further evaluation and treatment of depression. Patient states that she has been previously diagnosed with anxiety. She recalls being previously prescribed Zoloft. Patient denies any previous psychiatric hospitalizations. Patient denies any psychiatric outpatient follow- up. She reports a prior attempt at suicide on 2021 by overdose. Hospital course: Upon admission to the unit patient was initially presenting as flat, depressed, and withdrawn. She was very minimal in conversation and soft spoken. Non- spontaneous. Patient was however directable and agreeable to commence treatment. Patient got along well with other patients on the unit and followed unit protocol. Patient was compliant with the medications and denied any side effects throughout hospital course. Patient was started on Prozac for depression. Patient engaged in therapy both group and individual. Patient was also seen by medical team for history and physical exam. Over the course of the hospitalization, the patient displayed improvement in regards to her depression. She had an increase in affect. On the day of discharge, the patient is not reporting any suicidal or homicidal ideation, intention, and/or plan. She reports no access to weapons. She reports no auditory or visual hallucinations. She denies any paranoia or other delusions. She expresses strong desire to live for herself and for her family. A family meeting over the phone was conducted with the patient and her mother. They report that the firearms are locked up. Furthermore, we engaged in family therapy. The patient does not have a significant history of substance abuse and was counseled great length on abstaining from all substances including tobacco, alcohol, marijuana, and all illicit drugs. She was counseled at length on the importance of medication adherence and appropriate outpatient follow-up. She reports no medical issues or concerns on the day of discharge and is denying any chest pain, shortness of breath, palpitations, but I've dyskinesia, or akathisia. As the patient tacos cox met criteria for continued inpatient psychiatric hospitalization, she was subsequently discharged. Mental status exam: General Appearance: Patient appears to be stated age is alert, pleasant, and cooperative. Patient is in no acute distress and has fair hygiene and grooming Behavior: Patient is calmly seated without any agitated behavior. Speech: Patient's speech is fluent and nonpressured. Mood/Affect: Patient reports their mood is "I can't wait to go home", affect is constricted but more range than before. Laughs and smiles appropriately. Suicidality/Homicidality: Patient denies having any suicidal or homicidal ideation, intention, and/or plan. Perceptions: Patient denies any auditory or visual hallucinations. Though content/process: There is no evidence of any delusional thought content and thought process is linear and goal-directed. Patient is future oriented Memory and concentration: AOX3, grossly intact for the purposes of this session. Can spell "WORLD" backwards correctly. Judgment and insight: Improved with guarded prognosis Impression: Major depressive disorder Generalized anxiety disorder Plan: -Continue with discharge today as patient has improved and stabilized psychiatrically and is not currently an imminent threat to herself and/or others. Patient will remain at chronically elevated risk for harm to self and/or others due to her prior attempt at suicide. -Continue medications: Prozac 40 mg by mouth daily for depression/anxiety -Patient was counseled on the need for medication compliance and appropriate follow-up at mental health and also primary care for medical issues. Patient verbalized understanding and agreed. -Social work to arrange for and conduct family meeting to ensure safety upon discharge and answer any questions/concerns. Social work also to arrange for patients follow up appointments for psychiatric care along with follow up with primary care provider. -Patient counseled on abstaining from recreational drugs and marijuana and alcohol. Was informed/educated on the adverse effects on their physical and mental health. Patient verbally agreed and understood. -Patient was instructed to return to the hospital or seek immediate medical care if their psychiatric or medical symptoms do worsen or reoccur. -Psychoeducation and supportive therapy provided to patient. Risks and benefits of pharmacological treatment versus the risks and benefits of nontreatment weighed and discussed. Informed consent discussion held. Common side effects of psychotropics discussed such as, but not limited to headache, GI disturbance, sexual dysfunction, movement disorders, sedation, and orthostatic hypotension. Life threatening and blackbox warnings of prescribed medications also discussed. Potential risks of operating a vehicle or heavy machinery discussed with patient at length. Advised on importance of compliance and a reliable and responsible manner. Patient advised to review FDA consumer labeling of all medications prior to taking. Patient verbalized understanding of potential risks, and agrees with current treatment plan. Patient advised to medically contact physician/emergency personnel if any acute changes in condition occur. Vital Signs Temp 97.9 F 10/04/22 06:00 Pulse 72 10/04/22 06:00 Resp 18 10/04/22 06:00 BP 101/55 10/04/22 06:00 Pulse Ox 95 10/04/22 06:00 FiO2 Laboratory Results WBC 7.4 k/uL (3.8-10.6) 10/01/22 12:11 RBC 4.65 m/uL (3.80-5.40) 10/01/22 12:11 Hgb 13.8 gm/dL (11.4-16.0) 10/01/22 12:11 Hct 42.6 % (34.0-46.0) 10/01/22 12:11 MCV 91.6 fL (80.0-100.0) 10/01/22 12:11 MCH 29.8 pg (25.0-35.0) 10/01/22 12:11 MCHC 32.5 g/dL (31.0-37.0) 10/01/22 12:11 RDW 13.1 % (11.5-15.5) 10/01/22 12:11 Plt Count 327 k/uL (150-450) 10/01/22 12:11 MPV 7.6 10/01/22 12:11 Neutrophils % 64 % 10/01/22 12:11 Lymphocytes % 29 % 10/01/22 12:11 Monocytes % 4 % 10/01/22 12:11 Eosinophils % 2 % 10/01/22 12:11 Basophils % 0 % 10/01/22 12:11 Neutrophils # 4.7 k/uL (1.3-7.7) 10/01/22 12:11 Lymphocytes # 2.1 k/uL (1.0-4.8) 10/01/22 12:11 Monocytes # 0.3 k/uL (0-1.0) 10/01/22 12:11 Eosinophils # 0.1 k/uL (0-0.7) 10/01/22 12:11 Basophils # 0.0 k/uL (0-0.2) 10/01/22 12:11 Sodium 140 mmol/L (137-145) 10/03/22 07:42 Potassium 4.2 mmol/L (3.5-5.1) 10/03/22 07:42 Chloride 104 mmol/L (98-107) 10/03/22 07:42 Carbon Dioxide 25 mmol/L (22-30) 10/03/22 07:42 Anion Gap 11 mmol/L 10/03/22 07:42 BUN 12 mg/dL (7-17) 10/03/22 07:42 Creatinine 0.64 mg/dL (0.52-1.04) 10/03/22 07:42 Est GFR (CKD-EPI)AfAm >90 (>60 ml/min/1.73 sqM) 10/03/22 07:42 Est GFR (CKD-EPI)NonAf >90 (>60 ml/min/1.73 sqM) 10/03/22 07:42 Glucose 91 mg/dL (74-99) 10/03/22 07:[address] Glu mg/dL 117 mg/dL 10/01/22 12:11 Hemoglobin A1c 5.7 % 10/01/22 12:11 Calcium 9.2 mg/dL (8.4-10.2) 10/03/22 07:42 Total Bilirubin 0.5 mg/dL (0.2-1.3) 10/03/22 07:42 AST 31 U/L (14-36) 10/03/22 07:42 ALT 42 U/L (4-34) H 10/03/22 07:42 Alkaline Phosphatase 51 U/L (38-126) 10/03/22 07:42 Total Protein 6.8 g/dL (6.3-8.2) 10/03/22 07:42 Albumin 4.1 g/dL (3.5-5.0) 10/03/22 07:42 Triglycerides 144.00 mg/dL 10/01/22 12:11 Cholesterol 157.00 mg/dL 10/01/22 12:11 LDL Cholesterol, Calc 90.9 mg/dL 10/01/22 12:11 VLDL Cholesterol, Calc 28.80 mg/dL 10/01/22 12:11 HDL Cholesterol 37.30 mg/dL L 10/01/22 12:11 Cholesterol/HDL Ratio 4.21 Ratio 10/01/22 12:11 TSH 1.390 mIU/L (0.465-4.680) 10/01/22 12:11 Urine Color Yellow 10/01/22 01:27 Urine Appearance Cloudy (Clear) H 10/01/22 01:27 Urine pH 5.5 (5.0-8.0) 10/01/22 01:27 Ur Specific [place] 1.028 (1.001-1.035) 10/01/22 01:27 Urine Protein Trace (Negative) H 10/01/22 01:27 Urine Glucose (UA) Negative (Negative) 10/01/22 01:27 Urine Ketones Negative (Negative) 10/01/22 01:27 Urine Blood Small (Negative) H 10/01/22 01:27 Urine Nitrite Negative (Negative) 10/01/22 01:27 Urine Bilirubin Negative (Negative) 10/01/22 01:27 Urine Urobilinogen <2.0 mg/dL (<2.0) 10/01/22 01:27 Ur Leukocyte Esterase Large (Negative) H 10/01/22 01:27 Urine RBC 2 /hpf (0-5) 10/01/22 01:27 Urine WBC 68 /hpf (0-5) H 10/01/22 01:27 Ur Squamous Epith Cells 5 /hpf (0-4) H 10/01/22 01:27 Amorphous Sediment Rare /hpf (None) H 10/01/22 01:27 Urine Bacteria Rare /hpf (None) H 09/30/22 19:02 Hyaline Casts 1 /lpf (0-2) 10/01/22 01:27 Urine Mucus Moderate /hpf (None) H 10/01/22 01:27 Urine HCG, Qual Not Detected (Not Detectd) 10/01/22 01:27 Salicylates <1.0 mg/dL 09/30/22 19:02 Urine Opiates Screen Not Detected (NotDetected) 09/30/22 19:02 Ur Oxycodone Screen Not Detected (NotDetected) 09/30/22 19:02 Urine Methadone Screen Not Detected (NotDetected) 09/30/22 19:02 Ur Propoxyphene Screen Not Detected (NotDetected) 09/30/22 19:02 Acetaminophen <10.0 ug/mL 09/30/22 19:02 Ur Barbiturates Screen Not Detected (NotDetected) 09/30/22 19:02 U Tricyclic Antidepress Not Detected (NotDetected) 09/30/22 19:02 Ur Phencyclidine Scrn Not Detected (NotDetected) 09/30/22 19:02 Ur Amphetamines Screen Not Detected (NotDetected) 09/30/22 19:02 U Methamphetamines Scrn Not Detected (NotDetected) 09/30/22 19:02 U Benzodiazepines Scrn Not Detected (NotDetected) 09/30/22 19:02 Urine Cocaine Screen Not Detected (NotDetected) 09/30/22 19:02 U Marijuana (THC) Screen Not Detected (NotDetected) 09/30/22 19:02 Serum Alcohol <10 mg/dL 09/30/22 19:02 Coronavirus (PCR) Not Detected (Not Detectd) 09/30/22 23:24 Allergies Allergy/AdvReac Type Severity Reaction Status Date / Time No Known Allergies Allergy Verified 10/01/22 00:11 Patient Condition at Discharge: Stable Plan - Discharge Summary Discharge Rx Participant: Yes New Discharge Prescriptions: New FLUoxetine HCL [PROzac] 40 mg PO DAILY 30 Days #30 cap Discharge Medication List FLUoxetine HCL [PROzac] 40 mg PO DAILY 30 Days #30 cap 10/04/22 [Rx] Follow up Appointment(s)/Referral(s): [facility] [Other] - 3 Days Patient Instructions/Handouts: Depression (DC), Suicide Prevention (DC) Activity/Diet/Wound Care/Special Instructions: Avoid the use of street drugs and alcohol. Take all medications as prescribed. When you are in need of refills on your medications, please contact your medical provider and/or outpatient psychiatrist to have this done. Please go to scheduled outpatient appointments for aftercare treatment. If symptoms return or become worse, call the crisis line at and/or go to the nearest emergency room for evaluation. Discharge Disposition: HOME SELF-CARE
== END 2022-10-04 14:36 | disposition home or self-care (01) | DRG 918 ==
LOC: EC 18:10 → 3MHU 23:30
PROVIDERS: ADMIT Psychiatry & Neurology Psychiatry; ATTEND Psychiatry & Neurology Psychiatry
DX: T39.1X2A Poisoning by 4-Aminophenol derivatives, intentional self-harm, initial encounter (principal); N39.0 Urinary tract infection, site not specified; T45.0X2A Poisoning by antiallergic and antiemetic drugs, intentional self-harm, initial encounter; T43.022A Poisoning by tetracyclic antidepressants, intentional self-harm, initial encounter; R00.0 Tachycardia, unspecified; T39.8X2A Poisoning by other nonopioid analgesics and antipyretics, not elsewhere classified, intentional self-harm, initial encounter; F41.1 Generalized anxiety disorder; F32.9 Major depressive disorder, single episode, unspecified; Z91.148 Patient's other noncompliance with medication regimen for other reason
CPT/HCPCS: 36415; 80053; 80061; 80143; 80179; 80306; 80320; 81001; 81025; 82075; 83036; 84443; 85025; 87635; 93005; 96360; 99285